=== PATIENT | male | born 1995 | race Two or more races ===

== ENCOUNTER 2024-03-13 22:00 | Emergency (ER) | payer OTHER ==
[~2024-03-13] VITALS: Ht 180.3 cm; Wt 121.1 kg
[2024-03-13 22:08] VITALS: BP 122/72; O2SAT 96
[2024-03-13] MEDS ORDERED: KETOROLAC TROMETHAMINE 30 MG VIAL IV ONE (22:30)
[2024-03-13] MEDS ORDERED: 0.9 % SODIUM CHLORIDE 1,000 ML IV SCH (22:30)
[2024-03-13] MEDS ORDERED: VANCOMYCIN HCL 1,000 MG VIAL IV ONE (22:30)
[2024-03-14 00:59] LABS: HEMATOCRIT 40.9 % (39.0-48.0); MEAN CELL VOLUME 87.3 fL (80.0-100.00); MEAN CORPUSCULAR HGB CONC 34.3 g/dl (32.0-36.0); PLATELET COUNT 222 K/uL (150-450); RED BLOOD COUNT 4.68 M/uL (4.00-6.00)
[2024-03-14 01:06] LABS: ERYTHROCYTE SEDIMENTATION RATE 18 mm/hr
[2024-03-14 01:18] LABS: ALBUMIN 3.8 gm/dL (3.4-5.0); BILIRUBIN TOTAL 0.68 mg/dL (0.3-1.2); CREATININE SERUM 0.88 mg/dL (0.70-1.30); GFR 101.01; GLOBULINA 3.7 G/DL (2.4-3.5); POTASSIUM 3.89 mEq/L (3.5-5.1); TOTAL PROTEIN 7.5 gm/dL (6.4-8.2)
[2024-03-14 01:30] LABS: C-REACTIVE PROTEIN 7.87 MG/DL (0.00-0.29)
[2024-03-14] MEDS ORDERED: KETO10TA2 PO (06:38)
[2024-03-14] MEDS ORDERED: CEPHALEXIN500 MG PO (06:38)
[2024-03-14] MEDS ORDERED: KETOROLAC TROMETHAMINE 10 MG TABLET PO STA (06:45)
== END 2024-03-14 06:56 ==
LOC: ER 22:02
PROVIDERS: General Practice
DX: L03.116 Cellulitis of left lower limb (principal)